=== PATIENT | female | born 1990 | race Caucasian/White ===

== ENCOUNTER → 2018-03-02 | Outpatient (CLI) | payer BC ==
[2018-03-02 13:04] LABS: BASO % 0.2 % (0.0-1.0); EOS % 0.3 % (0.0-3.0); HEMATOCRIT 38.8 % (36.0-47.0); HEMOGLOBIN 12.7 g/dl (12.0-15.5); LYMPH # 1.7 10^3/uL (1.5-6.5); LYMPH % 19.5 % (24.0-44.0); MEAN CORPUSCULAR HEMOGLOBIN 29.7 pg (27.0-33.0); MEAN CORPUSCULAR HGB CONC 32.7 g/dl (32.0-36.5); MEAN CORPUSCULAR VOLUME 90.9 fl (80.0-96.0); MONO # 0.5 10^3/uL (0.0-0.8); MONO % 5.3 % (0.0-5.0); NEUTROPHILS # 6.5 10^3/uL (1.8-7.7); NEUTROPHILS % 74.5 % (36.0-66.0); PLATELET COUNT, AUTOMATED 310 10^3/uL (150-450); RED BLOOD COUNT 4.27 10^6/uL (4.00-5.40); WHITE BLOOD COUNT 8.7 10^3/uL (4.0-10.0)
[2018-03-02 14:26] LABS: CHLAMYDIA DNA AMPLIFICATION NEGATIVE (NEGATIVE); GC DNA AMPLIFICATION NEGATIVE (NEGATIVE)
[2018-03-03 11:14] LABS: HEPATITIS C VIRUS ABY INDEX 0.1 INDEX (<0.8); HIV 1&2 SCREEN CENTAUR NEGATIVE (NEGATIVE); RUBELLA IgG QUALITATIVE IMMUNE (IMMUNE)
== END ==
LOC: M SMT 10:35
PROVIDERS: ATTEND Advanced Practice Midwife
DX: Z34.81 Encounter for supervision of other normal pregnancy, first trimester (principal); Z36.89 Encounter for other specified antenatal screening

== ENCOUNTER → 2018-04-04 | Outpatient (CLI) | payer BC | LOC: M SMT 15:40 | PROVIDERS: ATTEND Advanced Practice Midwife | DX: Z36.89 Encounter for other specified antenatal screening (principal); Z3A.00 Weeks of gestation of pregnancy not specified ==

== ENCOUNTER → 2018-05-17 | Outpatient (CLI) | payer BC ==
--- NOTE | 2018-05-17 18:09 | REP ---
Clinical: Anatomical evaluation. Comparison: None . Findings: Examination demonstrates a single live intrauterine in footling breech presentation. motion is identified by technologist. Placenta is noted posterior and grade 1 without evidence for placenta previa or abruption. The umbilical cord is noted inserting 1.1 cm from the placental tip. Amniotic fluid volume is normal. Cervix measures 4.0 cm in length and appears closed. No evidence for nuchal cord. Gestational age by current measurements 19 weeks 6 days with FERMIN 10/05/2018 . FHR equals 150 beats per minute. BPD 4.6 cm 19 weeks 6 days HC 17.1 cm 19 weeks 5-day AC 15.4 cm 20 weeks 4 days FL 3.3 cm 20 weeks 2 days HL 3.1 cm 20 weeks 2 days HC/AC ratio 1.12 Estimated weight 349 grams (64th percentile). Anatomical assessment demonstrates normal structures including cranium, cavum, cerebellum/posterior fossa, facial features, lungs, diaphragm, stomach, cord insertion/three-vessel cord, kidneys/bladder, spine, and extremities. Bilateral choroid plexus cysts are identified. Incomplete evaluation of the heart/ventricular outflow tracts noted. Impression: 1. Single live intrauterine in footling breech presentation demonstrating appropriate estimated weight. 2. Marginal cord insertion on the placenta 1.1 cm from the placental tip. 3. Anatomical findings as described above warrant reevaluation and follow-up. Electronically Signed by Cabrera Ward MD 05/17/2018 06:00 P
== END ==
LOC: M SMT 13:30
PROVIDERS: ATTEND Advanced Practice Midwife
DX: Z34.82 Encounter for supervision of other normal pregnancy, second trimester (principal); Z3A.19 19 weeks gestation of pregnancy

== ENCOUNTER → 2018-06-02 | Outpatient (CLI) | payer BC ==
--- NOTE | 2018-06-02 10:23 | REP ---
OBSTETRIC SONOGRAPHY: HISTORY: Supervision of . FINDINGS: Scanning through the gravid uterus demonstrates a viable single intrauterine gestation in a cephalic lie. motion is observed and heart rate is recorded at 144 beats per minute. A posterior right lateral placenta is seen grade 1, without evidence of previa. Amniotic fluid is subjectively normal. Closed cervical length is measured at 3.7 cm, viewed transabdominally. No extrauterine abnormality is observed. There has been appropriate growth in the fetus. The umbilical cord insertion on the placenta is somewhat marginal as previously observed. No anomaly is seen. The following anatomic structures are identified and felt to be sonographically unremarkable: cranium, choroid plexus, cavum, cerebellum posterior fossa, face and profile, lungs, four-chamber heart with left and right ventricular outflow tract views, diaphragm, left-sided stomach, abdominal wall cord insertion, three-vessel umbilical cord, kidneys and bladder, spine, upper and lower extremities. The previously noted choroid plexus cysts have resolved. Biometry Chart: BPD 5.4 cm = 22 weeks 2 days HC 20.5 cm = 22 weeks 4 days AC 16.7 cm = 21 weeks 5 days FL 3.9 cm = 22 weeks 2 days HL 3.6 cm = 22 weeks 5 days CD 2.3 cm = 21 weeks 4 days HC/AC ratio normal 1.22 Cephalic index normal 0.72. Estimated weight 475 grams, 1 pound 0 ounces, 42nd percentile for 22 weeks 1 day. IMPRESSION: Viable single intrauterine gestation at 22 weeks 0 days by today's composite criteria. Expected gestational age estimate based on prior sonography is 21 weeks 1 day. FERMIN by prior sonography October 05, 2018. anatomic survey is felt to be complete. Electronically Signed by Gerardo Lyons MD 06/02/2018 02:31 P
== END ==
LOC: M SMT 08:42
PROVIDERS: ATTEND Advanced Practice Midwife
DX: Z34.02 Encounter for supervision of normal first pregnancy, second trimester (principal); Z36.89 Encounter for other specified antenatal screening; Z3A.22 22 weeks gestation of pregnancy

== ENCOUNTER → 2018-07-07 | Outpatient (CLI) | payer BC ==
[2018-07-07 13:12] LABS: HEMATOCRIT 33.8 % (36.0-47.0); HEMOGLOBIN 11.2 g/dl (12.0-15.5); MEAN CORPUSCULAR HEMOGLOBIN 30.7 pg (27.0-33.0); MEAN CORPUSCULAR HGB CONC 33.1 g/dl (32.0-36.5); MEAN CORPUSCULAR VOLUME 92.6 fl (80.0-96.0); PLATELET COUNT, AUTOMATED 353 10^3/uL (150-450); RED BLOOD COUNT 3.65 10^6/uL (4.00-5.40); WHITE BLOOD COUNT 9.7 10^3/uL (4.0-10.0)
== END ==
LOC: M SMT 10:03
PROVIDERS: ATTEND Obstetrics & Gynecology
DX: Z34.02 Encounter for supervision of normal first pregnancy, second trimester (principal); Z3A.00 Weeks of gestation of pregnancy not specified

== ENCOUNTER → 2018-09-14 | Outpatient (CLI) | payer BC | LOC: M SMT 09:19 | PROVIDERS: ATTEND Advanced Practice Midwife | DX: Z36.89 Encounter for other specified antenatal screening (principal); Z3A.00 Weeks of gestation of pregnancy not specified ==

== ENCOUNTER → 2018-09-14 | Outpatient (REF) | payer BC | LOC: M LAB REF 13:47 | PROVIDERS: ATTEND Advanced Practice Midwife | DX: Z34.83 Encounter for supervision of other normal pregnancy, third trimester (principal); Z3A.00 Weeks of gestation of pregnancy not specified ==

== ENCOUNTER 2018-10-01 20:48 | Inpatient (IN) | payer BC ==
[2018-10-01] VITALS (14 sets, daily range): BP systolic 124–187; BP diastolic 67–116
[~2018-10-01] VITALS: Ht 167.6 cm; Wt 87.9 kg
[2018-10-01] MEDS ORDERED: PENICILLIN G POTASSIUM IV 5 MU in D5W MINI-BAG PLUS 100 ML IV STA (21:14)
[2018-10-01] MEDS ORDERED: LACTATED RINGER'S 1000 ML IV STA (21:14)
[2018-10-01 22:06] LABS: HEMATOCRIT 36.3 % (36.0-47.0); HEMOGLOBIN 12.3 g/dl (12.0-15.5); MEAN CORPUSCULAR HEMOGLOBIN 30.2 pg (27.0-33.0); MEAN CORPUSCULAR HGB CONC 33.9 g/dl (32.0-36.5); MEAN CORPUSCULAR VOLUME 89.2 fl (80.0-96.0); PLATELET COUNT, AUTOMATED 317 10^3/uL (150-450); RED BLOOD COUNT 4.07 10^6/uL (4.00-5.40); WHITE BLOOD COUNT 11.1 10^3/uL (4.0-10.0)
[2018-10-01] MEDS ORDERED: FENTANYL 2MCG/ML ROPIVACAINE 0.2% IN 0.9% NACL 100ML IVBAG As Ordered ONE (22:12)
[2018-10-01] MEDS ORDERED: CALCCHW PO (22:30)
[2018-10-01] MEDS ORDERED: CALC500C16 PO (22:31)
[2018-10-01] MEDS ORDERED: [UNRECOGNIZED DRUG - CODE] PO (22:31)
[2018-10-01] MEDS ORDERED: CALCCHW19 PO (22:32)
[2018-10-01] MEDS ORDERED: POTA8CAP10 PO (22:33)
[2018-10-01] MEDS ORDERED: ONDANSETRON 4MG/2ML VIAL (J2405) IV PRN (22:35)
[2018-10-01] MEDS ORDERED: ePHEDrine SULFATE 25 MG/5 ML(5MG/ML) SYRINGE IV PRN (22:35)
[2018-10-01] MEDS ORDERED: FENTANYL/ROPIVACAINE/NACL BAG 100 ML EPIDURAL SCH (22:35)
[2018-10-01] MEDS ORDERED: LACTATED RINGER'S 1000 ML IV PRN (22:35)
[2018-10-01] MEDS ORDERED: diphenhydrAMINE INJ 50MG/ML VIAL (J1200) IV PRN (22:35)
[2018-10-01] MEDS ORDERED: REFRIGERATOR IV KEYS XX PRN (22:35)
[2018-10-01] MEDS ORDERED: EPIDURAL COMMENT XX SCH (22:35)
[2018-10-01] MEDS ORDERED: NALOXONE INJ 0.4 MG/1 ML VIAL (J2310) IV PRN (22:35)
[2018-10-01] MEDS ORDERED: EPIDURAL/PCA KEYS XX PRN (22:35)
[2018-10-01] MEDS ORDERED: ONDANSETRON 4 MG TAB (S0181) As Ordered ONE (22:37)
[2018-10-01] MEDS ORDERED: ONDANSETRON 4MG/2ML VIAL (J2405) As Ordered ONE (22:38)
[2018-10-01 22:46] LABS: ALT/SGPT 20 U/L (12-78); BILIRUBIN,TOTAL 0.2 MG/DL (0.2-1.0); CREATININE FOR GFR 0.84 MG/DL (0.55-1.30); GLOMERULAR FILTRATION RATE > 60.0 (>60); LDH LACTATE DEHYDROGENASE 224 U/L (84-246)
--- NOTE | 2018-10-01 23:39 | IPNPDOC ---
Obstetrical Progress Note Date of Service Oct 01, 2018 Subjective Patient reports feeling some rectal pressure with contractions. Assessment Heart Rate (FHR): 130 Variability: Moderate Accelerations: Positive Decelerations: Early Heart Rate Tracing: Category I Tocometer Contractions: Yes Frequency: regular Sterile Vaginal Examination Dilation: 9 cm (anterior lip) Effacement (%): 100% Station: 0 Postion/Presentation: Cephalic presentation Assessment and Plan EGA at Admission: 39.2 Status: Reassuring Group B Streptococcus: Positive Anticipate: Vaginal Delivery Additional Comments Patient had SROM to a moderate amount of clear fluid after epidural. DALIA CARDENAS CNM Oct 01, 2018 23:39
[2018-10-01] MEDS ORDERED: OXYTOCIN 30 UNITS IN 0.9% NaCl 500ML IV BAG (J2590) As Ordered ONE (23:56)
[2018-10-02] MEDS ORDERED: OXYTOCIN DRIP 30 UNITS in APPROPRIATE DILUENT 1 EA IV SCH (00:46)
[2018-10-02] MEDS ORDERED: ANUSOL HC CREAM 30GM TOP PRN (01:00)
[2018-10-02] MEDS ORDERED: RHOGAM 300 MCG (1500 IU) INJ (J2790) IM SCH (01:00)
[2018-10-02] MEDS ORDERED: ACETAMINOPHEN TAB 650MG DOSE (2X325MG) PO PRN (01:00)
[2018-10-02] MEDS ORDERED: METHYLERGONOVINE MALEATE 0.2 MG TAB PO PRN (01:00)
[2018-10-02] MEDS ORDERED: DIBUCAINE 1% OINTMENT 30GM TOP PRN (01:00)
[2018-10-02] MEDS ORDERED: MEASLES,MUMPS,RUBELLA VACCINE INJ (MMR-II) (90707) SC SCH (01:00)
[2018-10-02] MEDS ORDERED: ACETAMINOPHEN 500 MG TAB PO PRN (01:00)
[2018-10-02] MEDS ORDERED: DOCUSATE SODIUM 100 MG CAP PO PRN (01:00)
[2018-10-02] MEDS ORDERED: IBUPROFEN 600 MG TAB PO PRN (01:00)
[2018-10-02] MEDS ORDERED: PENICILLIN G POTASSIUM IV 2.5 MU in APPROPRIATE DILUENT 1 EA IV SCH (02:00)
[2018-10-02] MEDS: IBUPROFEN 800 MG TAB PO PRN (03:05)
[2018-10-02 04:10] VITALS: BP 117/66
[2018-10-02 05:51] VITALS: BP 98/57
--- NOTE | 2018-10-02 08:14 | HPE ---
DATE OF ADMISSION: 10/06/2018 HISTORY OF PRESENT ILLNESS: The patient is a 28-year-old female who is a 1, para 0 at 39 weeks and 2 days gestation with an estimated date of delivery of 10/06/2018 based off of her first trimester ultrasound and consistent with her last menstrual period (LMP). The patient's has been uncomplicated. She presents to labor and delivery with complaints of contractions that are every 3 minutes. She reports active movement. She denies leaking of fluid. She does report bloody show. PAST MEDICAL HISTORY: Varicella as a child. Melanoma in 2015 that was surgically removed. PAST SURGICAL HISTORY: Removal of melanoma in 2015. [place] tooth extraction. FAMILY HISTORY: Leukemia and heart disease. SOCIAL HISTORY: . The patient is a teacher. She denies any history of abuse, emotional, physical or sexual abuse. She denies being a smoker. She denies alcohol abuse but does drink socially prior to . She denies any drug abuse or history of use. SEXUAL HISTORY: Sexually-transmitted disease: Human papillomavirus. ALLERGIES: No known drug allergies. CURRENT MEDICATIONS: - vitamins LABS: Patient's blood type is A+, with an antibody screen that is negative. Her hemoglobin, hematocrit in the first trimester was 12.7, 38.8 with platelets of 310. Her pap smear on 02/21/2017 was normal. Rubella is immune. Her [facility] ([facility]) is nonreactive. Urine: No growth. Hepatitis B surface antigen is negative. Human immunodeficiency virus (HIV) is negative. Hepatitis C is negative. Gonorrhea and chlamydia are both negative. The patient's panoraal noninvasive screening test (NIPT) testing was low risk. Her one-hour glucose was 114 with a hemoglobin and hematocrit (H and H) of 11.2 and 33.8 with platelets of 353. Second human immunodeficiency virus (HIV) in the third trimester was negative and group B Streptococcus (GBS) is positive. PHYSICAL ASSESSMENT: GENERAL: Alert and oriented times three. RESPIRATORY: Regular rate and rhythm with no use of accessory muscles. ABDOMEN: Gravid. Nontender to touch. Cephalic presentation noted. Fetus through sterile vaginal exam and Evelio's. LOWER EXTREMITIES: Generalized edema with no pitting and no clonus. VITAL SIGNS: Blood pressure (BP) 139/85 with a heart rate of 51. heart rate: - 130, moderate variability, positive accelerations, no decelerations. Contractions every 1-3 minutes. STERILE VAGINAL EXAM: - 5 cm, 100% effaced, 0 station, bulging bag of membranes. ASSESSMENT: Intrauterine at 39 weeks 2 days gestation, active labor, group B Streptococcus (GBS) positive, category 1 heart rate tracing. PLAN: Admit patient to labor and delivery. Out of bed ad ricardo. Diet is clear liquids. Saline lock and laboratories per unit protocol. Anesthesia consult per patient's request. An 800 mL bolus of lactated Ringer's prior to epidural. Anticipate cervical change and spontaneous vaginal delivery ().
[2018-10-02] MEDS: PRENATAL VITAMINS CHEWABLE TABLET PO SCH (08:55)
--- NOTE | 2018-10-02 14:18 | DN ---
DATE: 10/02/2018 TIME: 0007 STATUS: Delivered. Spontaneous vaginal delivery. PROVIDER: Barbara Beatty CNM, JANETH. ANESTHESIA: Epidural. ESTIMATED BLOOD LOSS: 350 mL. FINDINGS: Male, 3320 grams, 7 pounds 5 ounces, scores 7/9, gestational hypertension. Patient is a 28-year-old female who is now a 1, para 1-0-0-1 at 39 weeks and 2 days gestation who presented to labor and delivery in active labor. She received an epidural for pain management. She progressed to fully dilated at 2352 and pushed a living male in the right occipitoanterior (AMILCAR) position with restitution to right occipitoposterior (ROP). The anterior shoulder delivered with ease and the corpus immediately followed. The baby was placed on the maternal abdomen, active and crying with stimulation. The cord was clamped times two after pulsations ceased and was cut by the father of the baby. A three vessel cord was noted. The placenta delivered spontaneously and intact at 0014 with a noted marginal cord insertion. Uterine hemostasis was achieved via rapid infusion of intravenous (IV) Pitocin and fundal massage. Gestational hypertension was diagnosed after patient presented with multiple elevated blood pressures over a four hour period. The vagina, perineum, cervix was inspected and found to have a right labial laceration that was repaired with a #3-[address]-1 until hemostasis was achieved. Mom plans to breastfeed. They are naming their Nikolai Viveros. Both mom and baby are in stable condition. All counts of instruments and sponges are correct. LEILANID
[2018-10-02 18:00] VITALS: BP 135/60
[2018-10-03 06:44] VITALS: BP 115/65
[2018-10-03] MEDS: PRENATAL VITAMINS CHEWABLE TABLET PO SCH (08:50)
[2018-10-03] MEDS: IBUPROFEN 800 MG TAB PO PRN (12:12)
[2018-10-03 18:08] VITALS: BP 127/78
[2018-10-04 06:00] VITALS: BP 116/56
== END 2018-10-04 12:25 | disposition home or self-care (01) | DRG 560 ==
LOC: M LDO 20:48 → M LDI 21:16 → M OBS 10-02 03:13
PROVIDERS: ADMIT Advanced Practice Midwife; ATTEND Advanced Practice Midwife
PROC: 10E0XZZ Delivery of Products of Conception, External Approach (ICD-10-PCS; principal; 2018-10-02)
PROC: 0HQ9XZZ Repair Perineum Skin, External Approach (ICD-10-PCS; 2018-10-02)
DX: O13.4 Gestational [pregnancy-induced] hypertension without significant proteinuria, complicating childbirth (principal); O99.824 Streptococcus B carrier state complicating childbirth; Z3A.39 39 weeks gestation of pregnancy; Z37.0 Single live birth; O70.0 First degree perineal laceration during delivery

== ENCOUNTER → 2018-12-13 | Outpatient (REF) | payer BC ==
[~2018-12-13] MED LIST: CALC500C16 PO; CALCCHW PO; CALCCHW19 PO; POTA8CAP10 PO; [UNRECOGNIZED DRUG - CODE] PO
[2018-12-15 14:29] LABS: HPV HYBRID CAPTURE II Negative (Negative)
== END ==
LOC: M LAB REF 13:31
PROVIDERS: ATTEND Advanced Practice Midwife
DX: Z12.4 Encounter for screening for malignant neoplasm of cervix (principal)
CPT/HCPCS: 87624; G0123

== ENCOUNTER → 2022-02-03 | Outpatient (REF) | payer BC ==
[~2022-02-03] MED LIST changes: -CALCCHW PO; +[UNRECOGNIZED DRUG - CODE] PO
== END ==
LOC: M SFHCWAGY 17:04
PROVIDERS: ATTEND Advanced Practice Midwife
DX: Z12.4 Encounter for screening for malignant neoplasm of cervix (principal)
CPT/HCPCS: 87624; G0123

== ENCOUNTER → 2023-02-09 | Outpatient (CLI) | payer BC | LOC: M WHC 07:20 | PROVIDERS: ATTEND Advanced Practice Midwife | DX: N97.9 Female infertility, unspecified (principal); N83.202 Unspecified ovarian cyst, left side ==

== ENCOUNTER → 2023-02-12 | Outpatient (CLI) | payer BC ==
[2023-02-12 12:38] LABS: THYROID STIMULATING HORMONE 0.986 uIU/ML (0.55-4.78)
[2023-02-12 12:39] LABS: ESTRADIOL 61.1 PG/ML; FOLLICLE STIMULATING HORMONE 8.8 mIU/ML; LUTEINIZING HORMONE 6.2 mIU/ML; PROLACTIN 7.82 NG/ML
[2023-02-12 12:40] LABS: FREE T4 1.25 NG/DL (0.89-1.76)
[2023-02-18 16:18] LABS: 17 HYDROXY PROGESTERONE 25 ng/dL (.); TESTOSTERONE FREE (DIRECT) 3.1 pg/mL (0.0-4.2); VITAMIN D 1,25 DIHYDROXY 80.9 pg/mL (24.8-81.5)
== END ==
LOC: M LAB 11:39
PROVIDERS: ATTEND Advanced Practice Midwife
DX: Z31.49 Encounter for other procreative investigation and testing (principal); N97.9 Female infertility, unspecified; Z31.69 Encounter for other general counseling and advice on procreation

== ENCOUNTER → 2023-03-04 | Outpatient (CLI) | payer BC | LOC: M PLALAB 12:11 | PROVIDERS: ATTEND Advanced Practice Midwife | DX: N97.9 Female infertility, unspecified (principal) ==

== ENCOUNTER → 2023-03-10 | Outpatient (CLI) | payer BC | LOC: M PLALAB 08:57 | PROVIDERS: ATTEND Advanced Practice Midwife | DX: Z31.81 Encounter for male factor infertility in female patient (principal) ==

== ENCOUNTER → 2024-03-15 | Outpatient (REF) | payer BC ==
[2024-03-15 15:35] LABS: GC DNA AMPLIFICATION NEGATIVE (NEGATIVE)
== END ==
LOC: M PLALAB 11:24
PROVIDERS: ATTEND Nurse Practitioner Family
DX: Z34.80 Encounter for supervision of other normal pregnancy, unspecified trimester (principal)

== ENCOUNTER → 2024-03-16 | Outpatient (CLI) | payer BC ==
[2024-03-16 18:11] LABS: HEMATOCRIT 35.1 % (36.0-47.0); HEMOGLOBIN 11.9 g/dl (12.0-15.5); MEAN CORPUSCULAR HGB CONC 33.9 g/dl (32.0-36.5); MEAN CORPUSCULAR VOLUME 88.4 fl (80.0-96.0); PLATELET COUNT, AUTOMATED 330 10^3/uL (150-450); RED BLOOD COUNT 3.97 10^6/uL (4.00-5.40)
[2024-03-16 19:04] LABS: HIV 1&2 SCREEN NEGATIVE (NEGATIVE)
[2024-03-16 19:12] LABS: HEPATITIS C VIRUS ABY INDEX < 0.02 INDEX (<0.8)
== END ==
LOC: M PLALAB 16:27
PROVIDERS: ATTEND Nurse Practitioner Family
DX: Z34.80 Encounter for supervision of other normal pregnancy, unspecified trimester (principal)

== ENCOUNTER → 2024-04-13 | Outpatient (CLI) | payer BC ==
[2024-04-13 14:36] LABS: CREATININE,RANDOM URINE < 13.0 MG/DL; URIC ACID 4.2 MG/DL (3.1-7.8)
[2024-04-13 14:38] LABS: LDH LACTATE DEHYDROGENASE 186 U/L (120-246)
[2024-04-13 14:39] LABS: ALT/SGPT 16 U/L (7.0-40); AST/SGOT 12 U/L (<34); BILIRUBIN,TOTAL 0.4 MG/DL (0.3-1.2); CREATININE FOR GFR 0.61 MG/DL (0.55-1.30); GLOMERULAR FILTRATION RATE > 60.0 (>60)
[2024-04-13 14:43] LABS: TOTAL PROTEIN,RANDOM URINE < 6.0 MG/DL (0.0-14.0)
== END ==
LOC: M PLALAB 10:32
PROVIDERS: ATTEND Nurse Practitioner Family
DX: O09.522 Supervision of elderly multigravida, second trimester (principal); Z3A.00 Weeks of gestation of pregnancy not specified

== ENCOUNTER → 2024-04-25 | Outpatient (CLI) | payer BC | LOC: M RAD 12:37 | PROVIDERS: ATTEND Nurse Practitioner Family | DX: O09.522 Supervision of elderly multigravida, second trimester (principal); Z3A.19 19 weeks gestation of pregnancy; O32.2XX0 Maternal care for transverse and oblique lie, not applicable or unspecified; O41.8X20 Other specified disorders of amniotic fluid and membranes, second trimester, not applicable or unspecified ==

== ENCOUNTER → 2024-06-18 | Outpatient (CLI) | payer BC ==
[2024-06-18 14:22] LABS: GLUCOSE CHALLENGE TEST 1 HOUR 158 MG/DL (LESS THAN 140)
[2024-06-18 14:24] LABS: HEMATOCRIT 31.5 % (36.0-47.0); HEMOGLOBIN 10.4 g/dl (12.0-15.5); PLATELET COUNT, AUTOMATED 299 10^3/uL (150-450); RED BLOOD COUNT 3.35 10^6/uL (4.00-5.40); WHITE BLOOD COUNT 8.6 10^3/uL (4.0-10.0)
[2024-06-18 14:54] LABS: HIV 1&2 SCREEN NEGATIVE (NEGATIVE)
[2024-06-18 15:02] LABS: HEPATITIS C VIRUS ABY INDEX 0.04 INDEX (<0.8)
[2024-06-18 15:14] LABS: Trichomonas vaginalis (AMP) NOT DETECTED (NEGATIVE)
[2024-06-18 15:38] LABS: GC DNA AMPLIFICATION NEGATIVE (NEGATIVE)
== END ==
LOC: M PLALAB 09:19
PROVIDERS: ATTEND Advanced Practice Midwife
DX: O09.522 Supervision of elderly multigravida, second trimester (principal)

== ENCOUNTER → 2024-06-22 | Outpatient (CLI) | payer BC | LOC: M LAB 06:28 | PROVIDERS: ATTEND Advanced Practice Midwife | DX: O99.810 Abnormal glucose complicating pregnancy (principal) ==

== ENCOUNTER → 2024-08-22 | Outpatient (REF) | payer BC ==
[~2024-08-22] MED LIST changes: +ACET-897 PO; +IBUP-1022 PO; +TUMS500C PO
== END ==
LOC: M PLALAB 10:29
PROVIDERS: ATTEND Advanced Practice Midwife
DX: O09.523 Supervision of elderly multigravida, third trimester (principal)

== ENCOUNTER → 2024-12-14 | Outpatient (REF) | payer BC ==
[~2024-12-14] MED LIST changes: -IBUP-1022 PO; +IBUP600T42 PO
[2024-12-18 16:08] LABS: HPV APTIMA Not Detected (Not Detected)
== END ==
LOC: M SFHCWAGY 13:16
PROVIDERS: ATTEND Advanced Practice Midwife
DX: Z12.4 Encounter for screening for malignant neoplasm of cervix (principal); Z77.9 Other contact with and (suspected) exposures hazardous to health
CPT/HCPCS: 87624; G0123